=== PATIENT | female | born 1985 | race Two or more races ===

== ENCOUNTER 2019-09-28 09:20 | Emergency (ER) | payer OTHER ==
[2019-09-28] MEDS ORDERED: MONTELUKAST NA 10 MG TABLET PO ONE (10:11)
[2019-09-28] MEDS ORDERED: SODIUM CHLORIDE 0.9% 500 ML INFUS.BAG IV ONE ×2 (10:12→11:02)
--- NOTE | 2019-09-28 10:13 | PDOC ---
History of Present Illness - General Chief Complaint: Tachycardia Stated Complaint: ASTHMA Time Seen by Provider: 09/28/19 09:56 - History of Present Illness Initial Comments: The pt is a 34F w/ a history of asthma who presents for evaluation of 3 weeks of worsening cough since not being able to take her montelukast. She states she ran out of it 3 weeks ago and has not been able to get a refill 2/2 insurance authorization. She has been using her inhaler with some relief of her symptoms. Her main complaint is worsening cough. She denies fevers/chills, chest pain, wheezing, abdominal pain, N/V/C/D, dysuria, hematuria, or changes in strength/ sensation. 09/28/19 10:11 Past History - Past Medical History Allergies/Adverse Reactions: Allergies Allergy/AdvReac Type Severity Reaction Status Date / Time No Known Allergies Allergy Verified 09/28/19 09:36 Home Medications: Ambulatory Orders Albuterol Sulfate Inhaler - [Ventolin Hfa Inhaler -] 1 puff IH PRN PRN 09/28/19 Montelukast Sodium [Singulair] 10 mg PO DAILY #12 tablet 09/28/19 Asthma: Yes COPD: No - Psycho Social/Smoking Cessation Hx Smoking History: Never smoked Hx Alcohol Use: No Drug/Substance Use Hx: No Review of Systems - Review of Systems Able to Perform ROS?: Yes Comments:: GENERAL/CONSTITUTIONAL: No fever or chills. No weakness HEAD, EYES, EARS, NOSE AND THROAT: No change in vision. No change in hearing. No sore throat CARDIOVASCULAR: No chest pain or shortness of breath RESPIRATORY: Denies hemoptysis GASTROINTESTINAL: No nausea, vomiting, diarrhea or constipation GENITOURINARY: No dysuria, frequency, or change in urination MUSCULOSKELETAL: No joint or muscle swelling or pain. No neck or back pain SKIN: No rash NEUROLOGIC: No headache, vertigo, loss of consciousness, or change in strength/ sensation ENDOCRINE: No increased thirst. No abnormal weight change HEMATOLOGIC/LYMPHATIC: No anemia, easy bleeding, or history of blood clots ALLERGIC/IMMUNOLOGIC: No hives or skin allergy 09/28/19 10:16 *Physical Exam - Vital Signs Last Vital Signs Temp Pulse Resp BP Pulse Ox 98.1 F 132 H 20 136/79 100 09/28/19 09:30 09/28/19 10:09 09/28/19 10:09 09/28/19 10:09 09/28/19 10:09 - Physical Exam GENERAL: Awake, alert, and oriented to person/place/time, in no acute distress HEAD: No signs of trauma, normoc ephalic, atraumatic EYES: PERRLA, EOMI, sclera anicteric, conjunctiva clear ENT: Hearing grossly normal, nares patent, oropharynx clear without exudates. Moist mucosa LUNGS: No distress, speaks in full sentences, clear to auscultation bilaterally HEART: Tachycardic rate and regular rhythm, normal S1 and S2, no murmurs appreciated, peripheral pulses normal and equal bilaterally ABDOMEN: Soft, nontender, normoactive bowel sounds. No guarding, no rebound. No masses EXTREMITIES: Normal inspection, Normal range of motion, no edema. No clubbing or cyanosis NEUROLOGICAL: Cranial nerves II through XII grossly intact. Normal speech, normal gait, no focal sensorimotor deficits SKIN: Warm, Dry 09/28/19 10:16 ED Treatment Course - LABORATORY CBC & Chemistry Diagram: 09/28/19 10:00 09/28/19 10:00 Medical Decision Making - Medical Decision Making The pt is a 34F w/ a history of asthma who presents for evaluation of 3 weeks of worsening cough since not being able to take her montelukast. ED Course CMP, CBC IVF Monetleukast 10mg PO once 09/28/19 10:17 Pt feels improved HR improved Labs unremarkable Plan for D/C w/ PCP f/u Discharge instructions and return precautions given Patient in agreement and verbalized understanding Dispo: Home 09/28/19 13:04 Discharge - Discharge Information Problems reviewed: Yes Clinical Impression/Diagnosis: Cough Condition: Stable Disposition: HOME - Admission No - Follow up/Referral Referrals: [facility] [Provider Group] - Patient Discharge Instructions Patient Printed Discharge Instructions: DI for Asthma -- Adult Additional Instructions: You were seen in the Emergency Department for evaluation of cough and a fast heart rate. You labs were unremarkable. Review the handout provided at discharge. Follow up with your primary care provider tomorrow. Return to the Emergency Department if you develop fevers, chest pain, trouble breathing, worsening pain, change in sensation, worsening symptoms, or any new/ concerning symptoms. Lo vieron en el departamento de emergencias para evaluar la tos y korina frecuencia cardaca rpida. Ustedes los laboratorios no fueron notables. Revise el folleto proporcionado al roel. Jesus un seguimiento con castillo proveedor de atencin primaria maana. Regrese al Departamento de Emergencias si presenta fiebre, dolor en el pecho, dificultad para respirar, empeoramiento del dolor, cambios en la sensacin, empeoramiento de los sntomas o cualquier sntoma nuevo o preocupante. Print Language: WELSH - Post Discharge Activity Work/Back to School Note: Back to Work
[2019-09-28] MEDS ORDERED: MONTELUKAST NA 10 MG TABLET ONE (10:15)
--- NOTE | 2019-09-28 10:35 | PDOC ---
Attending Attestation - Resident Resident Name: Fly Leiva - ED Attending Attestation I have performed the following: I have examined & evaluated the patient, The case was reviewed & discussed with the resident, I agree w/resident's findings & plan - HPI HPI: 09/28/19 11:38 34F w/ a history of asthma who presents for evaluation of 3 weeks of worsening cough since not being able to take her montelukast. She states she ran out of it 3 weeks ago and has not been able to get a refill 2/ insurance authorization. She has been using her inhaler with some relief of her symptoms. Her main complaint is worsening cough. She denies fevers/chills, chest pain, wheezing, abdominal pain, N/V/C/D, dysuria, hematuria, or changes in strength/ sensation. - Physicial Exam PE: 09/28/19 10:34 Agree with the resident's HPI and PE as documented in the electronic medical record. NAD, well appearing, EOMI, PERRL, nl conjunctiva, anicteric; neck supple. lungs clear, tachycardia, abdomen soft nontender. no rebound, guarding. Back nontender. BRITO x4, no focal neuro deficits. No peripheral edema. normal color for ethnicity, WWP. 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 now in the low 100s after treatment. no systemic findings breathing more comfortably more likely viral bronchitis, supportive care and treatment, hydration Pt to be discharged in stable condition. Patient and family made aware of clinical impression, treatment recommendations and disposition plan, return precautions discussed (including but not limited to new or persistent/worsening symptoms, pain, fevers, or signs of infection, chest pain, respiratory distress , inability to tolerate oral intake, dehydration, syncope, or neurologic changes ). Follow up with PMD as recommended, follow up information provided - appt tomorrow, take medications as instructed for duration of time. continue with supportive care, avoid triggers and precipitants. All questions answered to patient's satisfaction and expressed understanding and comfort with this. At the time of discharge, the patient is alert, clinically improved, tolerating po and verbalizes understanding of instructions, satisfied with the care received and felt comfortable with the plan. Patient does not suffer from an acute life- threatening medical condition at this time and is safe for outpatient follow- up. 09/28/19 13:11 Heart Score/ECG Review #1 ECG reviewed & interpreted by me at: 10:00 General ECG Interpretation: Sinus Rhythm, Normal Intervals 09/28/19 10:34 EKG sinus tachycardia 124 bpm, no interval abnormalities, narrow QRS, ST and T wave segments and morphology normal.
[2019-09-28 10:41] LABS: BASO % 1.2 % (0-2.0); EOS % 13.5 % (0-4.5); HEMATOCRIT 41.7 % (32.4-45.2); HEMOGLOBIN 13.7 GM/dL (10.7-15.3); LYMPH % 38.9 % (8-40); MCH 29.9 pg (25.7-33.7); MCHC 32.8 g/dl (32.0-36.0); MEAN CELL VOLUME 91.2 fl (80-96); MEAN PLT VOLUME 8.4 fl (7.5-11.1); MONO % 5.9 % (3.8-10.2); NEUT % 40.5 % (42.8-82.8); PLATELET COUNT 244 K/MM3 (134-434); RBC 4.57 M/mm3 (3.60-5.2); RDW 13.9 % (11.6-15.6); WHITE BLOOD COUNT 5.9 K/mm3 (4.0-10.0)
[2019-09-28] MEDS ORDERED: ONDANSETRON 4 MG/2 ML VIAL IVPUSH ONE (11:02)
[2019-09-28 11:38] LABS: ALBUMIN 4.3 g/dl (3.4-5.0); BILIRUBIN,TOTAL 0.4 mg/dL (0.2-1); BLOOD UREA NITROGEN 10.9 mg/dL (7-18); CALCIUM 9.5 mg/dL (8.5-10.1); CREATININE 0.7 mg/dL (0.55-1.3); TOT PROT 7.7 g/dl (6.4-8.2)
[2019-09-28 12:10] VITALS: TEMP 97.8
[2019-09-28 12:58] VITALS: BP 115/56; PULSE 105
--- NOTE | 2019-09-29 14:11 | EKG ---
Test Reason : Blood Pressure : / mmHG Vent. Rate : 124 BPM Atrial Rate : 124 BPM P-R Int : 126 ms QRS Dur : 076 ms QT Int : 310 ms P-R-T Axes : 074 040 043 degrees QTc Int : 445 ms SINUS TACHYCARDIA POSSIBLE LEFT ATRIAL ENLARGEMENT POOR R WAVE PROGRESSION NO PREVIOUS ECGS AVAILABLE Confirmed by LUKAS FITCH MD ([id number]) on 09/29/2019 2:10:54 PM Referred By: Confirmed By:LUKAS FITCH MD
== END 2019-09-28 13:15 | disposition home or self-care (01) ==
LOC: JER 09:20
PROC: 3E033GC Introduction of Other Therapeutic Substance into Peripheral Vein, Percutaneous Approach (ICD-10-PCS; principal; 2019-09-28)
DX: J40 Bronchitis, not specified as acute or chronic (principal); Z87.09 Personal history of other diseases of the respiratory system
CPT/HCPCS: 36415; 71045-TC-FY; 80053; 84703; 85025; 85379; 87804; 93005; 93010; 99285-25

== ENCOUNTER 2021-07-11 10:33 | Emergency (ER) | payer OTHER ==
[2021-07-11 10:42] VITALS: BP 129/80; PULSE 118; TEMP 97.9; BMI 25.7
[2021-07-11] MEDS ORDERED: KETOROLAC TROMETHAMINE 30 MG/1 ML VIAL IM ONE (11:24)
[2021-07-11] MEDS ORDERED: KETOROLAC TROMETHAMINE 30 MG/1 ML VIAL ONE (11:28)
== END 2021-07-11 11:37 | disposition home or self-care (01) ==
LOC: JERFT 10:33
PROC: 3E0233Z Introduction of Anti-inflammatory into Muscle, Percutaneous Approach (ICD-10-PCS; principal; 2021-07-11)
DX: K60.0 Acute anal fissure (principal)
CPT/HCPCS: 99284-25